=== PATIENT | male | born 1955 | race Caucasian/White ===

== ENCOUNTER 2024-06-25 14:45 | Inpatient (IN) | payer OTHER, SELFPAY ==
[2024-06-25] VITALS (38 sets, daily range): BP systolic 166–169; BP diastolic 87–89; PULSE 72–140; TEMP 36.2; O2SAT 93–99; BMI 16.7; BMI 16.8
--- NOTE | 2024-06-25 15:13 | ECG_ITS ---
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
--- NOTE | 2024-06-25 15:13 | XR_ITS ---
The [address] [address] Patient Name: YOON SUTHERLAND MRN: [id number] date: 1955 Sex: M Assigned Patient Location: ED.MAIN Current Patient Location: ER Accession/Order Number: [id number] Exam Date: 06/25/2024 15:40 Report Date: 06/25/2024 16:55 At the request of: TRACE BABCOCK Procedure: XR chest 1V PORTABLE CHEST X-RAY. CLINICAL HISTORY: Shortness of breath COMPARISON: None. TECHNIQUE: Single AP portable chest radiograph. FINDINGS: TUBES AND LINES: None. LUNGS: Lungs are clear. PLEURA: There is a moderate to large size right pneumothorax with a maximum intrapleural spread of 6.1 cm. There is mild leftward mediastinal shift. HEART AND MEDIASTINUM: Within normal limits for portable technique. OSSEOUS STRUCTURES: No acute abnormality. XR/XR chest 1V IMPRESSION: Moderate to large size right pneumothorax with mild leftward mediastinal shift. Electronically authenticated by: BREEZY LUGO Date: 06/25/2024 16:55
--- NOTE | 2024-06-25 15:15 | ED_ITS ---
Documented by User: SANDRA Pineda 06/25/24 17:23 HPI HPI - General Adult General Chief complaint: Chest Pain Stated complaint: SOB Time Seen by Provider: 06/25/24 15:09 Source: patient Mode of arrival: walk-in Limitations: no limitations History of Present Illness HPI narrative: Is a 69-year-old male who presents to the emergency department with his ex- for evaluation of shortness of breath. He states symptoms have been present for the last several weeks associated with tightness in his chest. He states he does not have any medical problems, ex- states that he smokes at least 1 pack of cigarettes per day and does not go to the doctor and is noncompliant with any medications that he has been given in the past. He has not been on any recent steroids or antibiotics. He has not had any fevers, hemoptysis or leg swelling. He is audibly wheezing with tachypnea. Patient's ex- states she brought him to the emergency department today because they went to the grocery store and the patient had to stop several times to catch his breath which made her concerned. Related Data Allergies Allergy/AdvReac Type Severity Reaction Status Date / Time acetaminophen (From Midrin) Allergy Severe Rash Verified 06/25/24 15:28 aspirin Allergy Severe vomiting Verified 06/25/24 15:28 blood calcium carbonate (From DHEA) Allergy Severe Rash Verified 06/25/24 15:28 calcium phosphate,dibasic Allergy Severe Rash Verified 06/25/24 15:28 (From DHEA) dichloralphenazone (From Allergy Severe Rash Verified 06/25/24 15:28 Midrin) isometheptene (From Midrin) Allergy Severe Rash Verified 06/25/24 15:28 prasterone (DHEA) (From DHEA) Allergy Severe Rash Verified 06/25/24 15:28 Opioid HPI Opioid Management Most Recent Opioid Data: Last Pain Scale 4 06/25/24 16:32 06/25/24 Last MAR Pain Assessment 06/25/24 16:32 Review of Systems ROS Constitutional Denies: fever or chills Ears, nose, mouth, and throat Denies: throat pain, nasal discharge or nasal congestion Cardiovascular Reports: chest pain and shortness of breath with exertion Respiratory Reports: shortness of breath, cough, wheezing and chest congestion; Denies: change in phlegm color or coughing up blood Gastrointestinal Denies: nausea or vomiting Integumentary/Breast Denies: rash Neurological Denies: numbness in extremities or weakness in extremities Hematologic/Lymphatic Denies: easy bruising or easy bleeding PFSH PFSH Social History Little interest or pleasure in doing things: not at all Feeling down, depressed, or hopeless: not at all Exam Narrative Exam Narrative: Gen.: Awake, alert, in no distress, thin male breathing rapidly Head: Normocephalic, atraumatic ENT: Moist mucous membranes Respiratory: Tachypnea, inspiratory and expiratory wheezing, worse in the left upper and lower lobes. Unable to speak in full sentences, nasal cannula placed in initial interview Cardio: Tachycardia Extremities: Moves extremities equally, no pedal edema Psych: Normal mood and affect Neuro: No focal neuro deficit Skin: Warm, dry, intact Constitutional Vital Signs, click to edit/add: Last Vital Signs Pulse 124 H 06/25/24 17:30 Resp 32 H 06/25/24 17:15 BP 166/87 H 06/25/24 15:02 Pulse Ox 96 06/25/24 17:30 O2 Del Method Nasal Cannula 06/25/24 15:26 O2 Flow Rate 2 06/25/24 15:26 Course Vital Signs Vital signs: Vital Signs Pulse Rate 140 H 06/25/24 15:02 Respiratory Rate 28 H 06/25/24 15:02 Blood Pressure 166/87 H 06/25/24 15:02 Pulse Oximetry 93 L 06/25/24 15:02 Oxygen Delivery Method Room Air 06/25/24 15:02 Pulse Rate 124 H 06/25/24 17:30 Respiratory Rate 32 H 06/25/24 17:15 Blood Pressure 166/87 H 06/25/24 15:02 Pulse Oximetry 96 06/25/24 17:30 Oxygen Delivery Method Nasal Cannula 06/25/24 15:26 Oxygen Delivery Flow Rate 2 06/25/24 15:26 Medical Decision Making [facility] Narrative Medical decision making narrative: IV was established with EKG obtained, labs were drawn including blood cultures due to the patient's tachycardia and tachypnea. Respiratory swabs are negative. Pulse oximetry improved on a nasal cannula, however the patient remained tachycardic. Chest x-ray shows the patient has a moderate right-sided pneumothorax. Chest tube was placed by attending physician, please see his procedure note for details. Case discussed with [facility]'s nursing lamp shades supervisor as well as Dr. Plata for pulmonology at this facility. We are unable to transfer the patient to another local facility, however Dr. Plata is agreeable to helping manage the patient at this facility, discussed with Dr. Messina for the hospitalist service and the patient is admitted to ICU in stable condition. Critical care time 35 minutesSHARED APC VISIT, PHYSICIAN ATTESTATION: [id number] I performed a substantive part of the MDM during the patient?s E/M visit. I personally evaluated and examined the patient. I personally made or approved the documented management plan and acknowledge its risk of complications. Medical Records Medical records reviewed: Yes I reviewed the patient's medical records Lab Data Lab results reviewed: Yes I reviewed the patient's lab results Labs: Lab Results 06/25/24 06/25/24 06/25/24 Range/Units 15:20 15:26 15:29 WBC 12.4 H (4.0-11.0) 10^3/uL RBC 5.87 (4.70-6.10) 10^6/uL Hgb 19.3 H (14.0-18.0) g/dL Hct 54.4 H (42.0-54.0) % MCV 92.7 (80.0-94.0) fL MCH 32.9 (25.9-34.0) pg MCHC 35.5 H (29.9-35.2) g/dL RDW 12.6 (11.0-15.0) % Plt Count 412 (150-450) 10^3/uL MPV 9.9 (9.5-13.5) fL Neut % (Auto) 70.0 (43.0-75.0) % Lymph % (Auto) 20.9 (20.5-60.0) % Bartholomew % (Auto) 7.4 (1.7-12.0) % Eos % (Auto) 0.7 L (0.9-7.0) % Baso % (Auto) 0.4 (0.2-2.0) % Neut # (Auto) 8.7 H (1.4-6.5) 10^3/uL Lymph # (Auto) 2.6 (1.2-3.8) 10^3/uL Bartholomew # (Auto) 0.9 H (0.3-0.8) 10^3/uL Eos # (Auto) 0.1 (0.0-0.7) 10^3/uL Baso # (Auto) 0.1 (0.0-0.1) 10^3/uL Abs Immat Gran (auto) 0.07 H (0.00-0.03) 10^3/uL Imm/Tot Granulo (auto) 0.6 H (0.0-0.5) % PT 10.9 (9.0-11.6) sec INR 1.03 VBG pH 7.258 L (7.330-7.430) VBG pCO2 33.1 L (40.0-52.0) mmHg Sodium 137 (136-145) mmol/L Potassium 3.8 (3.5-5.1) mmol/L Chloride 99 (98-107) mmol/L Carbon Dioxide 16.8 L (21.0-32.0) mmol/L Anion Gap 25.0 BUN 16.0 (7.0-18.0) mg/dL Creatinine 1.79 H (0.70-1.30) mg/dL Est GFR ( Amer) 46 L (>=60 mL/min/1.73m^2) Est GFR (Non-Af Amer) 38 L (>=60 mL/min/1.73m^2) BUN/Creatinine Ratio 8.9 Glucose 95 (74-106) mg/dL Lactate 3.6 H* (0.4-2.0) mmol/L Calcium 9.7 (8.5-10.1) mg/dL Total Bilirubin 1.1 H (0.2-1.0) mg/dL AST 23 (15-37) U/L ALT 13 L (16-63) U/L Alkaline Phosphatase 105 (46-116) U/L Troponin I High Sens 15.5 (4.0-76.1) pg/mL NT-Pro-B Natriuret Pep 246.0 (<=900.0) pg/mL Total Protein 8.6 H (6.4-8.2) g/dL Albumin 4.0 (3.4-5.0) g/dL Globulin 4.6 g/dL Albumin/Globulin Ratio 0.9 Influenza Type A Ag Negative Influenza Type B Ag Negative RSV Antigen Not detected (NOT DETECTE) SARS-CoV-2 Ag (CV2AG) Negative (NEGATIVE) Imaging Data Chest x-ray: Attestation: I have reviewed the pertinent imaging results. Radiologist's impression: ITS Impressions Chest X-Ray 06/25/24 15:13 IMPRESSION: Moderate to large size right pneumothorax with mild leftward mediastinal shift. Electronically authenticated by: BREEZY LUGO Date: 06/25/2024 16:55 ADDENDUM: 06/25/24 1730 IMPRESSION: Moderate to large size right pneumothorax with mild leftward mediastinal shift. Electronically authenticated by: BREEZY LUGO Date: 06/25/2024 17:27 ECG Data Attestation: I personally reviewed and interpreted this ECG as follows: (Sinus tachycardia at a rate of 134, ST depression noted globally with no acute ST elevation. Artifact present. EKG reviewed by attending physician) Discharge Plan Discharge Chief Complaint: Chest Pain Clinical Impression: Pneumothorax on right, Shortness of breath Patient Disposition: Admitted As Inpatient Time of Disposition Decision: 17:23 Condition: Fair Documented by User: Koby Bang 06/25/24 18:03 HPI HPI - General Adult General Chief complaint: Chest Pain Stated complaint: SOB Time Seen by Provider: 06/25/24 15:09 Related Data Allergies Allergy/AdvReac Type Severity Reaction Status Date / Time acetaminophen (From Midrin) Allergy Severe Rash Verified 06/25/24 15:28 aspirin Allergy Severe vomiting Verified 06/25/24 15:28 blood calcium carbonate (From DHEA) Allergy Severe Rash Verified 06/25/24 15:28 calcium phosphate,dibasic Allergy Severe Rash Verified 06/25/24 15:28 (From DHEA) dichloralphenazone (From Allergy Severe Rash Verified 06/25/24 15:28 Midrin) isometheptene (From Midrin) Allergy Severe Rash Verified 06/25/24 15:28 prasterone (DHEA) (From DHEA) Allergy Severe Rash Verified 06/25/24 15:28 Opioid HPI Opioid Management Most Recent Opioid Data: Last Pain Scale 4 06/25/24 16:32 06/25/24 Last MAR Pain Assessment 06/25/24 16:32 PFSH PFSH Social History Little interest or pleasure in doing things: not at all Feeling down, depressed, or hopeless: not at all Exam Constitutional Vital Signs, click to edit/add: Last Vital Signs Pulse 124 H 06/25/24 17:30 Resp 32 H 06/25/24 17:15 BP 166/87 H 06/25/24 15:02 Pulse Ox 96 06/25/24 17:30 O2 Del Method Nasal Cannula 06/25/24 15:26 O2 Flow Rate 2 06/25/24 15:26 Course Vital Signs Vital signs: Vital Signs Pulse Rate 140 H 06/25/24 15:02 Respiratory Rate 28 H 06/25/24 15:02 Blood Pressure 166/87 H 06/25/24 15:02 Pulse Oximetry 93 L 06/25/24 15:02 Oxygen Delivery Method Room Air 06/25/24 15:02 Pulse Rate 124 H 06/25/24 17:30 Respiratory Rate 32 H 06/25/24 17:15 Blood Pressure 166/87 H 06/25/24 15:02 Pulse Oximetry 96 06/25/24 17:30 Oxygen Delivery Method Nasal Cannula 06/25/24 15:26 Oxygen Delivery Flow Rate 2 06/25/24 15:26 Medical Decision Making [facility] Narrative Medical decision making narrative: IV was established with EKG obtained, labs were drawn including blood cultures due to the patient's tachycardia and tachypnea. Respiratory swabs are negative. Pulse oximetry improved on a nasal cannula, however the patient remained tachycardic. Chest x-ray shows the patient has a moderate right-sided pneumothorax. Chest tube was placed by attending physician, please see his procedure note for details. Case discussed with [facility]'s nursing lamp shades supervisor as well as Dr. Plata for pulmonology at this facility. We are unable to transfer the patient to another local facility, however Dr. Plata is agreeable to helping manage the patient at this facility, discussed with Dr. Messina for the hospitalist service and the patient is admitted to ICU in stable condition. Critical care time 35 minutesSHARED APC VISIT, PHYSICIAN ATTESTATION: [id number] I performed a substantive part of the MDM during the patient?s E/M visit. I personally evaluated and examined the patient. I personally made or approved the documented management plan and acknowledge its risk of complications. Attending physician note -I saw and examined the patient after the physician cleaner assistant let me know that the patient sustained a spontaneous right pneumothorax. Patient likely has COPD and had a bleb. No prior history of pneumothorax. I obtained verbal and written consent to perform chest tube placement in the right chest to relieve the pneumothorax. The patient received IV Zofran to prevent nausea and vomiting and IV Dilaudid for pain about 25 minutes prior to the procedure. I then applied 8 mL of 1% lidocaine to the area between the right fourth and fifth rib at the axillary line for local anesthesia. I then used a sterile 15 blade scalpel to make a small hole in the patient's skin at this level before inserting the chest tube with trochanter into the patient's right chest cavity and remove the trochanter while advancing the chest tube. I then sutured the chest tube in place and we connected the tube to suction using the included stopcock, valve and tubing. There was immediate suction sound and improvement of the patient's symptoms. There was also condensation on the tube, indicating proper placement. Portable chest x- ray was obtained to confirm this as well and revealed reinflation of the right lung. I spoke with Dr. Plata and let him know of our difficulty transferring this patient - he agreed to manage this patient's chest tube and the hospitalist would be the admitting physician. I spoke with Dr. Messina who agreed to admit this patient. The patient will go to the ICU. Of note, [facility] refused to take this patient due to lack of beds or lack of appropriate surgical/pulmonology coverage. - DO [facility]ani Lab Data Labs: Lab Results 06/25/24 06/25/24 06/25/24 Range/Units 15:20 15:26 15:29 WBC 12.4 H (4.0-11.0) 10^3/uL RBC 5.87 (4.70-6.10) 10^6/uL Hgb 19.3 H (14.0-18.0) g/dL Hct 54.4 H (42.0-54.0) % MCV 92.7 (80.0-94.0) fL MCH 32.9 (25.9-34.0) pg MCHC 35.5 H (29.9-35.2) g/dL RDW 12.6 (11.0-15.0) % Plt Count 412 (150-450) 10^3/uL MPV 9.9 (9.5-13.5) fL Neut % (Auto) 70.0 (43.0-75.0) % Lymph % (Auto) 20.9 (20.5-60.0) % Bartholomew % (Auto) 7.4 (1.7-12.0) % Eos % (Auto) 0.7 L (0.9-7.0) % Baso % (Auto) 0.4 (0.2-2.0) % Neut # (Auto) 8.7 H (1.4-6.5) 10^3/uL Lymph # (Auto) 2.6 (1.2-3.8) 10^3/uL Bartholomew # (Auto) 0.9 H (0.3-0.8) 10^3/uL Eos # (Auto) 0.1 (0.0-0.7) 10^3/uL Baso # (Auto) 0.1 (0.0-0.1) 10^3/uL Abs Immat Gran (auto) 0.07 H (0.00-0.03) 10^3/uL Imm/Tot Granulo (auto) 0.6 H (0.0-0.5) % PT 10.9 (9.0-11.6) sec INR 1.03 VBG pH 7.258 L (7.330-7.430) VBG pCO2 33.1 L (40.0-52.0) mmHg Sodium 137 (136-145) mmol/L Potassium 3.8 (3.5-5.1) mmol/L Chloride 99 (98-107) mmol/L Carbon Dioxide 16.8 L (21.0-32.0) mmol/L Anion Gap 25.0 BUN 16.0 (7.0-18.0) mg/dL Creatinine 1.79 H (0.70-1.30) mg/dL Est GFR ( Amer) 46 L (>=60 mL/min/1.73m^2) Est GFR (Non-Af Amer) 38 L (>=60 mL/min/1.73m^2) BUN/Creatinine Ratio 8.9 Glucose 95 (74-106) mg/dL Lactate 3.6 H* (0.4-2.0) mmol/L Calcium 9.7 (8.5-10.1) mg/dL Total Bilirubin 1.1 H (0.2-1.0) mg/dL AST 23 (15-37) U/L ALT 13 L (16-63) U/L Alkaline Phosphatase 105 (46-116) U/L Troponin I High Sens 15.5 (4.0-76.1) pg/mL NT-Pro-B Natriuret Pep 246.0 (<=900.0) pg/mL Total Protein 8.6 H (6.4-8.2) g/dL Albumin 4.0 (3.4-5.0) g/dL Globulin 4.6 g/dL Albumin/Globulin Ratio 0.9 Influenza Type A Ag Negative Influenza Type B Ag Negative RSV Antigen Not detected (NOT DETECTE) SARS-CoV-2 Ag (CV2AG) Negative (NEGATIVE) Imaging Data Chest x-ray: Radiologist's impression: ITS Impressions Chest X-Ray 06/25/24 15:13 IMPRESSION: Moderate to large size right pneumothorax with mild leftward mediastinal shift. Electronically authenticated by: BREEZY LUGO Date: 06/25/2024 16:55 ADDENDUM: 06/25/24 9550 IMPRESSION: Moderate to large size right pneumothorax with mild leftward mediastinal shift. Electronically authenticated by: BREEZY LUGO Date: 06/25/2024 17:27 Discharge Plan Discharge Chief Complaint: Chest Pain Clinical Impression: Pneumothorax on right, Shortness of breath Patient Disposition: Admitted As Inpatient Time of Disposition Decision: 17:23 Condition: Fair
[2024-06-25] MEDS: ALBUTEROL SULFATE 2.5 MG/3 ML VIAL NEB IH (15:25)
[2024-06-25 15:37] LABS: Basophils Absolute Auto 0.1 10^3/uL (0.0-0.1); Basophils Percent Auto 0.4 % (0.2-2.0); Eosinophils Absolute Auto 0.1 10^3/uL (0.0-0.7); Eosinophils Percent Auto 0.7 % (0.9-7.0); Hematocrit 54.4 % (42.0-54.0); Hemoglobin 19.3 g/dL (14.0-18.0); Immature Granulocytes Abs Auto 0.07 10^3/uL (0.00-0.03); Immature Granulocytes Pct Auto 0.6 % (0.0-0.5); Lymphocytes Absolute Auto 2.6 10^3/uL (1.2-3.8); Lymphocytes Percent Auto 20.9 % (20.5-60.0); Mean Corpuscular HGB Conc 35.5 g/dL (29.9-35.2); Mean Corpuscular Hemoglobin 32.9 pg (25.9-34.0); Mean Corpuscular Volume 92.7 fL (80.0-94.0); Mean Platelet Volume 9.9 fL (9.5-13.5); Monocytes Absolute Auto 0.9 10^3/uL (0.3-0.8); Monocytes Percent Auto 7.4 % (1.7-12.0); Neutrophils Absolute Auto 8.7 10^3/uL (1.4-6.5); Platelet Count 412 10^3/uL (150-450); Red Blood Count 5.87 10^6/uL (4.70-6.10); Red Cell Distribution Width 12.6 % (11.0-15.0); White Blood Count 12.4 10^3/uL (4.0-11.0)
[2024-06-25 15:39] LABS: PCO2 VBG 33.1 mmHg (40.0-52.0); pH VBG 7.258 (7.330-7.430)
[2024-06-25 15:44] LABS: Influenza Virus A Antigen Negative; Influenza Virus B Antigen Negative
[2024-06-25 15:45] LABS: Internal Control Within Normal Limits; Respiratory Syncytial Virus Not Detected (NOT DETECTE); SARS-CoV-2 Ag NEGATIVE (NEGATIVE)
[2024-06-25 15:51] LABS: INR 1.03; Prothrombin Time 10.9 sec (9.0-11.6)
[2024-06-25 16:00] LABS: Troponin I High Sensitivity 15.5 pg/mL (4.0-76.1)
[2024-06-25 16:05] LABS: Alanine Aminotransferase 13 U/L (16-63); Albumin Globulin Ratio 0.9; Alkaline Phosphatase 105 U/L (46-116); Aspartate Amino Transferase 23 U/L (15-37); BUN Creatinine Ratio 8.9; Bilirubin Total 1.1 mg/dL (0.2-1.0); Calcium 9.7 mg/dL (8.5-10.1); Carbon Dioxide 16.8 mmol/L (21.0-32.0); Chloride 99 mmol/L (98-107); Estimated GFR (African America 46 (>=60 mL/min/1.73m^2); Estimated GFR (Non-African Ame 38 (>=60 mL/min/1.73m^2); Globulin 4.6 g/dL; Glucose 95 mg/dL (74-106); Potassium 3.8 mmol/L (3.5-5.1); Sodium 137 mmol/L (136-145); Total Protein 8.6 g/dL (6.4-8.2)
[2024-06-25 16:07] LABS: Lactate/Lactic Acid 3.6 mmol/L (0.4-2.0)
[2024-06-25] MEDS: METHYLPREDNISOLONE SOD SUCC PF 125 MG/2 ML VIAL IVP (16:12)
[2024-06-25] MEDS: ONDANSETRON PF 4 MG/2 ML VIAL IV (16:24)
[2024-06-25] MEDS: HYDROMORPHONE HCL 1 MG/ML CARTRIDGE IV (16:32)
[2024-06-25] MEDS: LIDOCAINE HCL 1% 100 MG/10 ML MDV INJ (16:34)
--- NOTE | 2024-06-25 17:36 | XR_ITS ---
The [address] [address] Patient Name: YOON SUTHERLAND MRN: [id number] date: 1955 Sex: M Assigned Patient Location: ER Current Patient Location: ED.MAIN Accession/Order Number: [id number] Exam Date: 06/25/2024 17:42 Report Date: 06/25/2024 19:15 At the request of: APRYL AGUIAR Procedure: XR chest 1V Exam: Radiographs: XR chest 1V Reason for exam: chest tube placement for PTX Comparison: Plain films from earlier today XR/XR chest 1V IMPRESSION: Right pneumothorax has nearly resolved. Small amount of atelectasis and/or scarring in the right lower lung. Small amount of opacities in the right apex. Smallbore right chest tube. Hyperinflation both lungs. Possible emphysema. Remainder of the chest is unremarkable. Electronically authenticated by: NIKOLE LEAL Date: 06/25/2024 19:15
[2024-06-25] MEDS: LACTATED RINGER'S SOLUTION 1,000 ML 125 ML IV (19:53)
[2024-06-25] MEDS: MORPHINE SULFATE 2 MG/ML SYRINGE IV (19:53)
[2024-06-26] VITALS (73 sets, daily range): BP systolic 145–163; BP diastolic 69–104; PULSE 52–105; TEMP 36.4–37; O2SAT 95–100
[2024-06-26] MEDS: MORPHINE SULFATE 2 MG/ML SYRINGE IV ×4 (00:24→21:22)
[2024-06-26] MEDS: HEPARIN SODIUM (PORCINE) 5,000 UNIT/ML VIAL 5000 UNIT SUBQ ×4 (00:24→21:22)
--- NOTE | 2024-06-26 04:00 | XR_ITS ---
The [address] [address] Patient Name: YOON SUTHERLAND MRN: [id number] date: 1955 Sex: M Assigned Patient Location: ICU Current Patient Location: ICU Accession/Order Number: [id number] Exam Date: 06/26/2024 04:05 Report Date: 06/26/2024 06:02 At the request of: ANDREI MCLAUGHLIN Procedure: XR chest 1V EXAM: XR chest 1V HISTORY: Pneumothorax COMPARISON: Chest x-ray, 06/25/2024. TECHNIQUE: AP upright portable chest x-ray. FINDINGS: Right chest tube tip projects over the medial margin of the left upper lobe in the left lateral superior mediastinum, presumably in the anterior recess of the medial right upper lobe. No definite residual right pneumothorax is seen. There is stable right apical pulmonary parenchymal scarring with additional mild fibrotic scarring or atelectasis in the right lung base. Left lung is clear. Cardiac size, mediastinal contour and pulmonary vascularity are within normal limits. Calcified granulomatous mediastinal and right hilar nodes are present. XR/XR chest 1V IMPRESSION: 1. Right chest tube tip projecting over the medial margin of the left upper lobe in the left lateral superior mediastinum, presumably in the anterior recess of the medial right upper lobe. No definite residual right pneumothorax is seen. 2. Stable right apical pulmonary parenchymal scarring with additional mild fibrotic scarring or atelectasis in the right lung base. Electronically authenticated by: CHE JAMES Date: 06/26/2024 06:02
[2024-06-26 06:00] LABS: Basophils Percent Auto 0.1 % (0.2-2.0); Hematocrit 45.3 % (42.0-54.0); Hemoglobin 16.2 g/dL (14.0-18.0); Immature Granulocytes Abs Auto 0.05 10^3/uL (0.00-0.03); Immature Granulocytes Pct Auto 0.5 % (0.0-0.5); Lymphocytes Absolute Auto 0.8 10^3/uL (1.2-3.8); Lymphocytes Percent Auto 7.6 % (20.5-60.0); Mean Corpuscular HGB Conc 35.8 g/dL (29.9-35.2); Mean Corpuscular Hemoglobin 32.5 pg (25.9-34.0); Mean Corpuscular Volume 90.8 fL (80.0-94.0); Mean Platelet Volume 9.8 fL (9.5-13.5); Monocytes Absolute Auto 0.3 10^3/uL (0.3-0.8); Neutrophils Absolute Auto 9.1 10^3/uL (1.4-6.5); Neutrophils Percent Auto 88.8 % (43.0-75.0); Platelet Count 328 10^3/uL (150-450); Red Blood Count 4.99 10^6/uL (4.70-6.10); Red Cell Distribution Width 12.3 % (11.0-15.0); White Blood Count 10.3 10^3/uL (4.0-11.0)
[2024-06-26] MEDS: LACTATED RINGER'S SOLUTION 1,000 ML 125 ML IV (06:02)
[2024-06-26 06:27] LABS: Alanine Aminotransferase 12 U/L (16-63); Albumin Globulin Ratio 0.9; Albumin Level 3.2 g/dL (3.4-5.0); Alkaline Phosphatase 76 U/L (46-116); Anion Gap 14.3; Aspartate Amino Transferase 15 U/L (15-37); BUN Creatinine Ratio 13.5; Bilirubin Total 0.4 mg/dL (0.2-1.0); Calcium 9.1 mg/dL (8.5-10.1); Carbon Dioxide 23.7 mmol/L (21.0-32.0); Chloride 101 mmol/L (98-107); Estimated GFR (African America 51 (>=60 mL/min/1.73m^2); Estimated GFR (Non-African Ame 42 (>=60 mL/min/1.73m^2); Globulin 3.5 g/dL; Glucose 188 mg/dL (74-106); Sodium 135 mmol/L (136-145); Total Protein 6.7 g/dL (6.4-8.2)
[2024-06-26] MEDS: OXYCODONE HCL 5 MG TABLET PO ×2 (09:28→17:28)
--- NOTE | 2024-06-26 11:41 | P.HP_ITS ---
HPI H&P: HPI History of Present Illness Chief complaint: RT PNEUMOTHORAX Narrative: 69-year-old male has not followed up with a physician for over 5 years now presented to ER last evening with sudden onset right-sided chest pain and shortness of breath that was so severe that he could not catch his breath. Workup in ER revealed moderate size right pneumothorax with mild mediastinal shift. In ER, he had chest tube placement and afterwards he was admitted to ICU for management of pneumothorax. Patient feels considerably well after chest tube placement but is still feeling slightly dyspneic and reports right-sided chest pain because of chest tube. He reports that for past 1 to 2 months he has been experiencing shortness of breath but last evening was entirely different where he could not hold of not seeing a physician for his dyspnea. Patient currently smokes 1 pack a day. He has no prior history of pneumothorax. Opioid HPI Opioid Management Most Recent Pain and Opioid Data: Last Pain Scale 5 06/26/24 10:30 06/26/24 Last Pain Assessment 06/26/24 09:00 Last ED Pain Assessment 06/25/24 20:01 Last MAR Pain Assessment 06/26/24 10:30 Last ORT Total Score 5 06/25/24 23:35 06/25/24 Last ORT Risk Category Moderate Risk 06/25/24 23:35 06/25/24 Review of Systems ROS Status of ROS 10 or more systems reviewed and unremark able except as noted in history and below [facility] Medical History (Updated 06/26/24 @ 11:45 by Shaikh Mayuri MD) CKD stage 3b, GFR 30-44 ml/min ?N18.32 - Chronic kidney disease, stage 3b (ICD-10) Femur fracture ?S72.90XA - Unspecified fracture of unspecified femur, initial encounter for closed fracture (ICD-10) Hernia ?K46.9 - Unspecified abdominal hernia without obstruction or gangrene (ICD- 10) Hypertension ?I10 - Essential (primary) hypertension (ICD-10) Pneumothorax ?J93.9 - Pneumothorax, unspecified (ICD-10) COPD (chronic obstructive pulmonary disease) ?J44.9 - Chronic obstructive pulmonary disease, unspecified (ICD-10) Surgical History (Updated 06/26/24 @ 11:42 by Shaikh Mayuri MD) H/O inguinal hernia repair ?Z98.890 - Other specified postprocedural states (ICD-10) ?Z87.19 - Personal history of other diseases of the digestive system (ICD-10) H/O total knee replacement ?Z96.659 - Presence of unspecified artificial knee joint (ICD-10) H/O removal of testicle ?Z90.79 - Acquired absence of other genital organ(s) (ICD-10) Social History (Updated 06/26/24 @ 11:42 by Shaikh Mayuri MD) Within the past year, how often did you have a drink containing alcohol: 4 or more times a week Within the past year, how many standard drinks containing alcohol did you have on a typical day: 3 or 4 Within the past year, how often did you have six or more drinks on one occasion: monthly Total score: 4 Score interpretation: A score of 4 or more indicates drinking is likely to affect patient's safety. Smoking status: Current every day smoker Non-prescribed substance use: former substance user Highest level of school completed/degree received: high school graduate Little interest or pleasure in doing things: not at all Feeling down, depressed, or hopeless: not at all Meds Home Medications and Allergies Allergies Allergy/AdvReac Type Severity Reaction Status Date / Time acetaminophen (From Midrin) Allergy Severe Rash Verified 06/25/24 15:28 aspirin Allergy Severe vomiting Verified 06/25/24 15:28 blood calcium carbonate (From DHEA) Allergy Severe Rash Verified 06/25/24 15:28 calcium phosphate,dibasic Allergy Severe Rash Verified 06/25/24 15:28 (From DHEA) dichloralphenazone (From Allergy Severe Rash Verified 06/25/24 15:28 Midrin) isometheptene (From Midrin) Allergy Severe Rash Verified 06/25/24 15:28 prasterone (DHEA) (From DHEA) Allergy Severe Rash Verified 06/25/24 15:28 Exam Constitutional Vital Signs, click to edit/add: Last Vital Signs Temp 97.6 F 06/26/24 08:00 Pulse 60 06/26/24 08:00 Resp 20 06/26/24 08:00 BP 157/96 H 06/26/24 08:00 Pulse Ox 100 06/26/24 08:00 O2 Del Method Nasal Cannula 06/26/24 08:00 O2 Flow Rate 6 06/26/24 08:00 Documenting provider has reviewed patient's vital signs: yes Common normals: no apparent distress and oriented x3 General appearance: cooperative Respiratory Common normals: normal respiratory effort Effort & inspection: able to speak in complete sentences Auscultation: wheezes Other: Chest tube in place. Cardio Common normals: regular rate, S1 normal heart sound and S2 normal heart sound Rate: regular rate Heart sounds: S1 normal and S2 normal GI Common normals: Normal to inspection, nondistended, normoactive bowel sounds present, soft to palpation, non-tender and no hepatosplenomegaly Palpation: soft and no hepatosplenomegaly Extremity Common normals: no clubbing, cyanosis or edema Neuro Common normals: oriented x3, moves all extremities and no focal motor deficits Psych Common normals: mental status grossly normal, denies hallucinations, denies homicidal ideation and denies suicidal ideation Results Labs Labs: Short CBC 06/25/24 06/26/24 Range/Units 15:20 05:33 WBC 12.4 H 10.3 (4.0-11.0) 10^3/uL Hgb 19.3 H 16.2 (14.0-18.0) g/dL Hct 54.4 H 45.3 (42.0-54.0) % Plt Count 412 328 (150-450) 10^3/uL BMP 06/25/24 06/26/24 15:20 05:33 Sodium 137 135 L Potassium 3.8 4.0 Chloride 99 101 Carbon Dioxide 16.8 L 23.7 BUN 16.0 22.0 H Creatinine 1.79 H 1.63 H Glucose 95 188 H Calcium 9.7 9.1 Liver Function 06/25/24 06/26/24 Range/Units 15:20 05:33 Total Bilirubin 1.1 H 0.4 (0.2-1.0) mg/dL AST 23 15 (15-37) U/L ALT 13 L 12 L (16-63) U/L Alkaline Phosphatase 105 76 (46-116) U/L Albumin 4.0 3.2 L (3.4-5.0) g/dL ABG ABG results: 06/25/24 15:26 VBG pH 7.258 L VBG pCO2 33.1 L Assessment and Plan Assessment and Plan (1) Pneumothorax on right: Assessment and Plan: Chest tube in place. XR shows resolution of Pneumothroax. Pulm on board. Chest tube management as per Pulm (2) Shortness of breath: Assessment and Plan: Improved after Chest tube placement (3) COPD (chronic obstructive pulmonary disease): Assessment and Plan: Likely has underlying COPD/emphysema. Will need PFTs as outpatient. Duonebs while inpatient. Qualifiers: COPD type: unspecified COPD Qualified Code(s): J44.9 - Chronic obstructive pulmonary disease, unspecified (4) CKD stage 3b, GFR 30-44 ml/min: Assessment and Plan: Likely chronic kidney disease. Will need outpatient f.u
--- NOTE | 2024-06-26 12:25 | PM.PLCN ---
History of Present Illness History of Present Illness Consult date: 06/27/24 Requesting physician: Koby Bang Reason for consult: pneumothorax Chief complaint: RT PNEUMOTHORAX Narrative: 69yo male presented to [facility] ER with abrupt onset right-sided chest pain and worsening dyspnea. Chest x-ray in the ER showed a large right-sided pneumothorax with some mild mediastinal shift. A small bore chest tube was placed in the mid axillary line which has resolved the pneumothorax. He has remained on -20cm suction overnight. Patient states other than pain associated with the incision, he does not have the same quality of pain that brought him to the ER. He states he is able to take deeper breaths and decrease coughing. He was placed on waterseal and no air leak was noted. Patient has no known history of COPD, though he is a long-term smoker, currently at 1 pack a day. He has never had a pneumothorax in the past. Review of Systems ROS Status of ROS 10 or more systems reviewed and unremarkable except as noted in history and below Cardiovascular Reports: chest pain (Now associated with chest tube placement) Respiratory Reports: shortness of breath (Decreased) and cough (Decreased) [facility] Medical History (Updated 06/26/24 @ 12:33 by Preston Plata DO) CKD stage 3b, GFR 30-44 ml/min ?N18.32 - Chronic kidney disease, stage 3b (ICD-10) Femur fracture ?S72.90XA - Unspecified fracture of unspecified femur, initial encounter for closed fracture (ICD-10) Hernia ?K46.9 - Unspecified abdominal hernia without obstruction or gangrene (ICD-10) Hypertension ?I10 - Essential (primary) hypertension (ICD-10) Pneumothorax ?J93.9 - Pneumothorax, unspecified (ICD-10) COPD (chronic obstructive pulmonary disease) ?J44.9 - Chronic obstructive pulmonary disease, unspecified (ICD-10) Surgical History (Updated 06/26/24 @ 11:42 by Shaikh Mayuri MD) H/O inguinal hernia repair ?Z98.890 - Other specified postprocedural states (ICD-10) ?Z87.19 - Personal history of other diseases of the digestive system (ICD-10) H/O total knee replacement ?Z96.659 - Presence of unspecified artificial knee joint (ICD-10) H/O removal of testicle ?Z90.79 - Acquired absence of other genital organ(s) (ICD-10) Social History (Updated 06/26/24 @ 11:42 by Shaikh Mayuri MD) Within the past year, how often did you have a drink containing alcohol: 4 or more times a week Within the past year, how many standard drinks containing alcohol did you have on a typical day: 3 or 4 Within the past year, how often did you have six or more drinks on one occasion: monthly Total score: 4 Score interpretation: A score of 4 or more indicates drinking is likely to affect patient's safety. Smoking status: Current every day smoker Non-prescribed substance use: former substance user Highest level of school completed/degree received: high school graduate Little interest or pleasure in doing things: not at all Feeling down, depressed, or hopeless: not at all Meds Home Medications and Allergies Allergies Allergy/AdvReac Type Severity Reaction Status Date / Time acetaminophen (From Midrin) Allergy Severe Rash Verified 06/25/24 15:28 aspirin Allergy Severe vomiting Verified 06/25/24 15:28 blood calcium carbonate (From DHEA) Allergy Severe Rash Verified 06/25/24 15:28 calcium phosphate,dibasic Allergy Severe Rash Verified 06/25/24 15:28 (From DHEA) dichloralphenazone (From Allergy Severe Rash Verified 06/25/24 15:28 Midrin) isometheptene (From Midrin) Allergy Severe Rash Verified 06/25/24 15:28 prasterone (DHEA) (From DHEA) Allergy Severe Rash Verified 06/25/24 15:28 Exam Constitutional Vital Signs, click to edit/add: Last Vital Signs Temp 97.6 F 06/26/24 08:00 Pulse 77 06/26/24 11:54 Resp 15 06/26/24 11:54 BP 155/71 H 06/26/24 11:54 Pulse Ox 100 06/26/24 11:54 O2 Del Method Nasal Cannula 06/26/24 08:00 O2 Flow Rate 6 06/26/24 08:00 Documenting provider has reviewed patient's vital signs: yes Nutritional appearance: thin and underweight HENMT Other: Wearing nasal cannula. Mallampati III. Chest Other: Right-sided thoracostomy tube in the mid axillary line. Tender to touch, but no subcutaneous emphysema palpated. Scant drainage of clear cristobal to slightly blood-tinged pleural fluid. No air leak in atrium on waterseal. Respiratory Other: Left lung clear to auscultation. Right lung is diminished in right base with some coarse breath sounds. No expiratory wheezes. No dullness to percussion, altered tactile fremitus, or egophony appreciated. Cardio Rate: regular rate Rhythm: regular rhythm Extremity Common normals: no clubbing, cyanosis or edema Neuro Motor exam: no tremor noted and no fasciculations Psych Common normals: mental status grossly normal Attitude: calm and engaged Activity/motor behavior: appropriate eye contact Speech: normal speech Results Laboratory Findings ABG, PT/INR, D-dimer: PT/INR, D-dimer PT 10.9 sec (9.0-11.6) 06/25/24 15:20 INR 1.03 06/25/24 15:20 Abnormal lab findings: Abnormal Labs 06/25/24 06/25/24 06/26/24 15:20 15:26 05:33 WBC 12.4 H Hgb 19.3 H Hct 54.4 H MCHC 35.5 H 35.8 H Neut % (Auto) 88.8 H Lymph % (Auto) 7.6 L Eos % (Auto) 0.7 L 0.0 L Baso % (Auto) 0.1 L Neut # (Auto) 8.7 H 9.1 H Lymph # (Auto) 0.8 L [place] # (Auto) 0.9 H Abs Immat Gran (auto) 0.07 H 0.05 H Imm/Tot Granulo (auto) 0.6 H VBG pH 7.258 L VBG pCO2 33.1 L Sodium 135 L Carbon Dioxide 16.8 L BUN 22.0 H Creatinine 1.79 H 1.63 H Est GFR ( Amer) 46 L 51 L Est GFR (Non-Af Amer) 38 L 42 L Glucose 188 H Lactate 3.6 H* Total Bilirubin 1.1 H ALT 13 L 12 L Total Protein 8.6 H Albumin 3.2 L Diagnostic Findings Chest x-ray: report reviewed and image reviewed Assessment and Plan Assessment and Plan (1) Secondary spontaneous pneumothorax: Assessment and Plan: 1. Spontaneous right-sided pneumothorax. With presumptive underlying COPD, and as this is the first incident at age 69 years, this would be consistent with a secondary spontaneous pneumothorax. It was large on the right with mild mediastinal shift necessitating placement of a chest tube. This seems to be progressing very well with resolution of the pneumothorax on chest x-ray this morning and no evidence of air leak on waterseal today. Plan is to remain on waterseal for the remainder of the day and recheck a chest x-ray tomorrow. Continue O2 at 6L/min for nitrogen washout. Pain control. If pneumothorax remains resolved tomorrow, will remove chest tube and recheck a chest x-ray several hours later, and if no pneumothorax is present, that he should be acceptable for discharge home. He is counseled that he can never scuba dive, he will need to avoid any air transportation within the next 4 to 6 weeks. He was counseled to stop smoking as continued smoking increases the risk for current pneumothoraces. Alpha 1 antitrypsin genotype and level were ordered. Will need follow-up outpatient with me. 2. COPD. Presumptive diagnosis based on history. Likely cause for pneumothorax. Smoking cessation. Will evaluate him outpatient regarding need for PFT, etc. 3. Tobacco abuse. Discussed smoking cessation. He is counseled never to restart due to pneumothorax. He can be evaluated outpatient to begin LDCT screening for lung cancer. 4. Underweight. BMI is 16.8. Patient may have a degree of underlying pulmonary cachexia. Healthy weight gain/caloric intake is recommended.
[2024-06-27] VITALS (27 sets, daily range): BP systolic 137–158; BP diastolic 70–76; PULSE 58–85; TEMP 36.4–36.9; O2SAT 98–100
[2024-06-27] MEDS: OXYCODONE HCL 5 MG TABLET PO ×2 (00:06→12:05)
[2024-06-27] MEDS: MORPHINE SULFATE 2 MG/ML SYRINGE IV (04:42)
--- NOTE | 2024-06-27 05:00 | XR_ITS ---
The [address] [address] Patient Name: YOON SUTHERLAND MRN: [id number] date: 1955 Sex: M Assigned Patient Location: ICU Current Patient Location: ICU Accession/Order Number: [id number] Exam Date: 06/27/2024 04:50 Report Date: 06/27/2024 05:52 At the request of: ANDREI MCLAUGHLIN Procedure: XR chest 1V EXAMINATION: XR chest 1V HISTORY: Right pneumothorax COMPARISON: XR chest 06/26/2024 FINDINGS: LUNGS: Stable small caliber right chest tube. No residual pneumothorax. Stable trace amount of discoid atelectasis or scarring. Small dense nodule within lateral right lung base favoring a granuloma. VASCULATURE: No increased pulmonary vasculature. PLEURA: No pneumothorax, effusion, or pleural thickening. CARDIAC: No cardiomegaly or cardiac silhouette abnormality. MEDIASTINUM: No visible mass or adenopathy. BONES: No fracture or visible bone lesion. OTHER: Negative. XR/XR chest 1V IMPRESSION: 1. No residual right pneumothorax. Stable right chest tube. Electronically authenticated by: WEST SEPULVEDA Date: 06/27/2024 05:52
[2024-06-27 05:25] LABS: Basophils Percent Auto 0.3 % (0.2-2.0); Eosinophils Absolute Auto 0.1 10^3/uL (0.0-0.7); Eosinophils Percent Auto 0.4 % (0.9-7.0); Hemoglobin 17.6 g/dL (14.0-18.0); Immature Granulocytes Abs Auto 0.06 10^3/uL (0.00-0.03); Immature Granulocytes Pct Auto 0.4 % (0.0-0.5); Lymphocytes Absolute Auto 2.4 10^3/uL (1.2-3.8); Lymphocytes Percent Auto 16.7 % (20.5-60.0); Mean Corpuscular HGB Conc 35.9 g/dL (29.9-35.2); Mean Corpuscular Hemoglobin 32.7 pg (25.9-34.0); Mean Corpuscular Volume 91.1 fL (80.0-94.0); Mean Platelet Volume 10.2 fL (9.5-13.5); Monocytes Absolute Auto 1.1 10^3/uL (0.3-0.8); Monocytes Percent Auto 7.2 % (1.7-12.0); Platelet Count 350 10^3/uL (150-450); Red Blood Count 5.38 10^6/uL (4.70-6.10); Red Cell Distribution Width 12.6 % (11.0-15.0); White Blood Count 14.6 10^3/uL (4.0-11.0)
[2024-06-27 05:45] LABS: Alanine Aminotransferase 16 U/L (16-63); Albumin Globulin Ratio 0.9; Albumin Level 3.6 g/dL (3.4-5.0); Alkaline Phosphatase 77 U/L (46-116); Anion Gap 11.1; Aspartate Amino Transferase 28 U/L (15-37); BUN Creatinine Ratio 10.7; Bilirubin Total 0.6 mg/dL (0.2-1.0); Calcium 9.5 mg/dL (8.5-10.1); Carbon Dioxide 30.1 mmol/L (21.0-32.0); Chloride 102 mmol/L (98-107); Estimated GFR (African America >60 (>=60 mL/min/1.73m^2); Estimated GFR (Non-African Ame 59 (>=60 mL/min/1.73m^2); Globulin 3.8 g/dL; Glucose 84 mg/dL (74-106); Potassium 3.2 mmol/L (3.5-5.1); Sodium 140 mmol/L (136-145); Total Protein 7.4 g/dL (6.4-8.2)
[2024-06-27] MEDS: HEPARIN SODIUM (PORCINE) 5,000 UNIT/ML VIAL 5000 UNIT SUBQ (06:27)
--- NOTE | 2024-06-27 06:53 | P.PLPN_ITS ---
Progress Note: A&P Assessment and Plan (1) Secondary spontaneous pneumothorax: Assessment and Plan: 1. Spontaneous right-sided pneumothorax. ?Remains resolved while on water seal based on CXR this AM.? Removed chest tube this AM - undressed the area, cut the single suture, and removed tube during exhalation. Area dressed with Vaseline gauze with overlying 4x4 and tape.? Will repeat CXR ~ noon.? If no pneumothorax, patient should be acceptable for discharge from a pulmonary perspective.? He may F/U with me outpatient in ~1 month - appointment scheduled for 07/26/2023 @ 13:00. Return to ER if experiencing similar pain to chief complaint or abrupt dyspnea. 2. COPD. Outpatient evaluation. 3. Tobacco abuse. Smoking cessation paramount 4. Underweight. Healthy weight gain/caloric intake is recommended. Subjective Subjective Interval history: Patient placed on water seal yesterday. No issues reported overnight. Pain is controlled with current medicine. Denies worsening dyspnea or coughing. Reviewed CXR imaging and report - no residual pneumothorax while on water seal this AM. Exam Constitutional Vital Signs, click to edit/add: Last Vital Signs Temp 98.5 F 06/27/24 04:46 Pulse 59 L 06/27/24 06:26 Resp 18 06/27/24 04:47 BP 158/70 H 06/27/24 04:39 Pulse Ox 99 06/27/24 05:16 O2 Del Method Nasal Cannula 06/27/24 05:16 O2 Flow Rate 6 06/27/24 05:16 Documenting provider has reviewed patient's vital signs: yes Nutritional appearance: thin and underweight HENMD Other: Wearing nasal cannula. Chest Other: Right-sided thoracostomy tube in the mid axillary line. Remains tender to touch. No erythema, drainage, subQ air. Held in place by a single suture. Respiratory Other: Left lung clear to auscultation. Right lung is diminished in right base, re solved crackles. No wheezes. Cardio Rate: bradycardic Rhythm: regular rhythm Extremity Common normals: no clubbing, cyanosis or edema Neuro Motor exam: no tremor noted and no fasciculations Psych Common normals: mental status grossly normal Attitude: calm and engaged Activity/motor behavior: appropriate eye contact Speech: normal speech
--- NOTE | 2024-06-27 08:24 | CM.NOTE ---
Important Message From Medicare discussed with pt, pt verbalizes understanding and signs paper. Original given to pt and copy placed on pt's chart.
[2024-06-27] MEDS: POTASSIUM CHLORIDE 10 MEQ ER TABLET 40 MEQ PO (08:45)
--- NOTE | 2024-06-27 09:59 | CM.NOTE ---
Rounds made with Dr. Messina, pt will have repeat chest x-ray at noon and possible discharge to home. Dr. Messina discussed with pt importance of quitting smoking. Pt has no discharge needs identified. PT ambulating pt at this time.
--- NOTE | 2024-06-27 12:00 | XR_ITS ---
The [address] [address] Patient Name: YOON SUTHERLAND MRN: [id number] date: 1955 Sex: M Assigned Patient Location: ICU Current Patient Location: ICU Accession/Order Number: [id number] Exam Date: 06/27/2024 12:00 Report Date: 06/27/2024 13:32 At the request of: ANDREI MCLAUGHLIN Procedure: XR chest 1V EXAM: XR chest 1V HISTORY: Right pneumothorax - chest tube removed COMPARISON: 06/27/2024 at 4:50 AM, 06/25/2024 TECHNIQUE: AP portable] FINDINGS: LUNGS: Interval removal of right chest tube. No pneumothorax. Patchy infiltrate right apex, stable. VASCULATURE: No increased pulmonary vasculature. PLEURA: No pneumothorax, effusion, or pleural thickening. CARDIAC: No cardiomegaly or cardiac silhouette abnormality. MEDIASTINUM: Calcifications consistent with old granulomatous disease. BONES: No fracture or visible bone lesion. OTHER: Negative. XR/XR chest 1V IMPRESSION: No pneumothorax Electronically authenticated by: KAYLEIGH WYLIE Date: 06/27/2024 13:32
--- NOTE | 2024-06-27 13:54 | P.DS_ITS ---
DS: Providers Provider Date of admission: 06/25/24 23:11 Primary care physician: Non-Staff PhysicianMD Admitting clinician: Shaikh Mayuri Attending physician on admission: Shaikh Mayuri Consults: 06/25/24 17:12 Consult to Pulmonology Routine Consulting Provider: Prseton Plata Reason for consultation: right pneumothorax Has provider been notified: Yes 06/25/24 18:13 Consult to Pulmonology Routine Consulting Provider: Preston Plata Reason for consultation: Pneumothorax Occupational Therapy Eval and Treat Routine Reason for consultation: Ambulatory dysfunction/weakness Physical Therapy Eval and Treat Routine Reason for consultation: Ambulatory dysfunction/weakness Attending physician on discharge: Shaikh Mayuri Discharging clinician: Shaikh Mayuri Anticipated date of discharge: 06/27/24 DS: Diagnosis Discharge Diagnosis (1) Secondary spontaneous pneumothorax: (2) Shortness of breath: (3) COPD (chronic obstructive pulmonary disease): Qualifiers: COPD type: unspecified COPD Qualified Code(s): J44.9 - Chronic obstructive pulmonary disease, unspecified DS: Summary Hospital Course Hospital Course: 69-year-old male presented to ER with sudden onset right-sided chest pain and shortness of breath that was so severe that he could not catch his breath. Workup in ER revealed moderate size right pneumothorax with mild mediastinal shift. In ER, he had chest tube placement and afterwards he was admitted to ICU for management of pneumothorax. Patient was seen by Pulmonology. His CT was removed today after his CXR showed resolution of Pneumothorax. Repeat CXR at noon after removing Chest tube shows no evidence of Pneumothorax. Patient is stable for discharge. He will need f/u with PCP and Pulm. Appointments made for him already. Counseled on smoking cessation Status at Discharge Functional status at discharge: independent ambulation Overall status at discharge: patient is back to baseline Time Spent with Patient Time attestation: Total time spent providing and/or coordinating discharge services: Time spent: greater than 30 minutes Exam Constitutional Vital Signs, click to edit/add: Last Vital Signs Temp 97.6 F 06/27/24 12:00 Pulse 74 06/27/24 12:00 Resp 14 06/27/24 12:00 BP 138/73 06/27/24 12:00 Pulse Ox 99 06/27/24 12:00 O2 Del Method Nasal Cannula 06/27/24 12:00 O2 Flow Rate 6 06/27/24 12:00 Documenting provider has reviewed patient's vital signs: yes Common normals: no apparent distress and oriented x3 General appearance: cooperative Respiratory Common normals: normal respiratory effort Effort & inspection: able to speak in complete sentences Auscultation: wheezes Cardio Common normals: regular rate, S1 normal heart sound and S2 normal heart sound Rate: regular rate Heart sounds: S1 normal and S2 normal Extremity Common normals: no clubbing, cyanosis or edema Neuro Common normals: oriented x3, moves all extremities and no focal motor deficits Psych Common normals: mental status grossly normal, denies hallucinations, denies homicidal ideation and denies suicidal ideation DS: Data Data Completed and Pending Labs on day of discharge: Labs from last 24 hours 06/27/24 04:47 WBC 14.6 H RBC 5.38 Hgb 17.6 Hct 49.0 MCV 91.1 MCH 32.7 MCHC 35.9 H RDW 12.6 Plt Count 350 MPV 10.2 Neut % (Auto) 75.0 Lymph % (Auto) 16.7 L [place] % (Auto) 7.2 Eos % (Auto) 0.4 L Baso % (Auto) 0.3 Neut # (Auto) 11.0 H Lymph # (Auto) 2.4 [place] # (Auto) 1.1 H Eos # (Auto) 0.1 Baso # (Auto) 0.0 Abs Immat Gran (auto) 0.06 H Imm/Tot Granulo (auto) 0.4 Sodium 140 Potassium 3.2 L Chloride 102 Carbon Dioxide 30.1 Anion Gap 11.1 BUN 13.0 Creatinine 1.22 Est GFR ( Amer) >60 Est GFR (Non-Af Amer) 59 L BUN/Creatinine Ratio 10.7 Glucose 84 Calcium 9.5 Total Bilirubin 0.6 AST 28 ALT 16 Alkaline Phosphatase 77 Total Protein 7.4 Albumin 3.6 Globulin 3.8 Albumin/Globulin Ratio 0.9 Discharge Plan Discharge Disposition: Home, Self-Care Condition: Fair Activity: increase activity as tolerated Diet: advance to your usual diet Print Language: Kazakh Forms: Portal Instructions Follow Up Appointments: Follow up appointment with steam pressure chamber operator Dr. Plata on 07/26/2024 at 1:00pm phone number [phone] [place] [address]. Follow up/New patient appointment with Dr. Ivan Segal 06/30/2023 at 1:15pm phone number [phone] address is [facility] [place] [address]
--- NOTE | 2024-06-29 15:51 | CM.DCFOLLOWU ---
1st attempt 06/29/24, no answer
--- NOTE | 2024-06-30 15:39 | CM.DCFOLLOWU ---
2nd attempt 06/30/24, no answer
--- NOTE | 2024-07-01 14:55 | CM.DCFOLLOWU ---
3rd attempt 07/01/24, no answer
== END 2024-06-27 14:37 | disposition home or self-care (01) | DRG 191 ==
LOC: ER 18:03 → ICU 23:17
PROVIDERS: Physician Assistant; Admitting Provider Internal Medicine; Emergency Provider Emergency Medicine; Visit Provider Internal Medicine
DX: J43.9 Emphysema, unspecified (principal); J93.12 Secondary spontaneous pneumothorax; Z68.1 Body mass index [BMI] 19.9 or less, adult; R64 Cachexia; I12.9 Hypertensive chronic kidney disease with stage 1 through stage 4 chronic kidney disease, or unspecified chronic kidney disease; N18.32 Chronic kidney disease, stage 3b; F17.210 Nicotine dependence, cigarettes, uncomplicated; R63.6 Underweight; Z88.6 Allergy status to analgesic agent; Z88.8 Allergy status to other drugs, medicaments and biological substances
CPT/HCPCS: 36415; 71045; 80053; 82800; 83605; 83880; 84484; 85025; 85610; 87040; 87420; 87804; 87811; 93005; 94640; 94761; 96374; 96375; 97161; 97165; 99285; J1171; J1644; J2270; J2405; J2919

== ENCOUNTER 2024-11-06 15:03 | Emergency (ER) | payer OTHER, SELFPAY ==
[2024-11-06 15:09] VITALS: BP 159/91; PULSE 79; TEMP 36.8; O2SAT 97; BMI 16.4
[2024-11-06] MEDS: HYDROCODONE/ACET 5-325 MG TABLET 1 TAB PO (15:25)
[2024-11-06 15:37] LABS: Basophils Percent Auto 0.2 % (0.2-2.0); Eosinophils Percent Auto 0.2 % (0.9-7.0); Hematocrit 48.1 % (42.0-54.0); Hemoglobin 17.4 g/dL (14.0-18.0); Immature Granulocytes Abs Auto 0.05 10^3/uL (0.00-0.03); Immature Granulocytes Pct Auto 0.3 % (0.0-0.5); Lymphocytes Percent Auto 6.6 % (20.5-60.0); Mean Corpuscular HGB Conc 36.2 g/dL (29.9-35.2); Mean Corpuscular Hemoglobin 35.7 pg (25.9-34.0); Mean Corpuscular Volume 98.6 fL (80.0-94.0); Mean Platelet Volume 9.5 fL (9.5-13.5); Monocytes Absolute Auto 1.2 10^3/uL (0.3-0.8); Monocytes Percent Auto 7.8 % (1.7-12.0); Neutrophils Absolute Auto 12.9 10^3/uL (1.4-6.5); Neutrophils Percent Auto 84.9 % (43.0-75.0); Platelet Count 343 10^3/uL (150-450); Red Blood Count 4.88 10^6/uL (4.70-6.10); White Blood Count 15.2 10^3/uL (4.0-11.0)
--- NOTE | 2024-11-06 15:47 | ED_ITS ---
HPI HPI - General Adult General Chief complaint: Extremity Problem, Nontraumatic Stated complaint: SWOLLEN L ARM, L SHOULDER PAIN Time Seen by Provider: 11/06/24 15:10 Source: patient Mode of arrival: walk-in History of Present Illness HPI narrative: The patient is a 69-year-old male who presents to the emergency department today for evaluation concerns for pain to his left shoulder and wrist. He endorses 2 days ago he began experiencing pain to the posterior aspect of his left shoulder and reports limitation in movement due to pain. He initially mentions this morning he woke up with pain and swelling to his left wrist. He denies any injuries/trauma to his left upper extremity. No paresthesias, weakness, loss of movement to the affected extremity otherwise. He states he has a history of arthritis, no history of gout. Historically no fevers. No chest pain or shortness of breath. He states he did not take any analgesic medication prior to evaluation in the ER. Related Data Previous Rx's ?Medication ?Instructions ?Recorded hydrocodone 5 mg-acetaminophen 325 1 tab PO Q6H PRN pa in #7 tabs 11/06/24 mg tablet methylprednisolone 4 mg tablets in 4 mg PO QID #21 ea 11/06/24 a dose pack (Medrol (Abhi)) Allergies Allergy/AdvReac Type Severity Reaction Status Date / Time aspirin Allergy Severe vomiting Verified 11/06/24 15:22 blood calcium carbonate (From DHEA) Allergy Severe Rash Verified 11/06/24 15:22 calcium phosphate,dibasic Allergy Severe Rash Verified 11/06/24 15:22 (From DHEA) dichloralphenazone (From Allergy Severe Rash Verified 11/06/24 15:22 Midrin) isometheptene (From Midrin) Allergy Severe Rash Verified 11/06/24 15:22 prasterone (DHEA) (From DHEA) Allergy Severe Rash Verified 11/06/24 15:22 Opioid HPI Opioid Management Most Recent Opioid Data: Last Pain Scale 6 06/27/24, 14:00 Last Pain Intensity 2 06/27/24, 11:40 Last MAR Pain Assessment Today, 15:25 Last ORT Total Score 5 06/25/24, 23:35 Last ORT Risk Category Moderate Risk 06/25/24, 23:35 Review of Systems ROS Status of ROS 10 or more systems reviewed and unremark able except as noted in history and below PFSH PFS Medical History (Updated 11/06/24 @ 16:25 by Katiana Pham NP) CKD stage 3b, GFR 30-44 ml/min ?N18.32 - Chronic kidney disease, stage 3b (ICD-10) Femur fracture ?S72.90XA - Unspecified fracture of unspecified femur, initial encounter for closed fracture (ICD-10) Hernia ?K46.9 - Unspecified abdominal hernia without obstruction or gangrene (ICD- 10) Hypertension ?I10 - Essential (primary) hypertension (ICD-10) Pneumothorax ?J93.9 - Pneumothorax, unspecified (ICD-10) COPD (chronic obstructive pulmonary disease) ?J44.9 - Chronic obstructive pulmonary disease, unspecified (ICD-10) Surgical History (Updated 06/26/24 @ 11:42 by Shaikh Mayuri MD) H/O inguinal hernia repair ?Z98.890 - Other specified postprocedural states (ICD-10) ?Z87.19 - Personal history of other diseases of the digestive system (ICD-10) H/O total knee replacement ?Z96.659 - Presence of unspecified artificial knee joint (ICD-10) H/O removal of testicle ?Z90.79 - Acquired absence of other genital organ(s) (ICD-10) Social History (Updated 06/26/24 @ 11:42 by Shaikh Mayuri MD) Within the past year, how often did you have a drink containing alcohol: 4 or more times a week Within the past year, how many standard drinks containing alcohol did you have on a typical day: 3 or 4 Within the past year, how often did you have six or more drinks on one occasion: monthly Total score: 4 Score interpretation: A score of 4 or more indicates drinking is likely to affect patient's safety. Smoking status: Current every day smoker Non-prescribed substance use: former substance user Highest level of school completed/degree received: high school graduate Little interest or pleasure in doing things: not at all Feeling down, depressed, or hopeless: not at all Exam Narrative Exam Narrative: Constituational: Awake/ alert, no apparent distress, thin, appears older than stated age HENMT: normocephalic, external ears normal, moist oral mucous membranes and oropharynx normal Eyes: EOMI and conjunctivae normal Neck: ROM intact Chest: inspection of chest normal Respiratory: Normal respiratory effort, clear to auscultation bilaterally Cardio: regular rate and regular rhythm GI: soft to palpation and non-tender Back: nontender MSK: + Moderate pain to the posterior aspect of L shoulder without surrounding edema, ecchymosis, crepitus, deformity, L upper arm/elbow stable ROM limited at L shoulder due to pain with inability to past 90 degrees or abduct, + moderate pain L wrist with surrounding erythema, edema, no ecchymosis, crepitus, deformity, L hand/forearm stable, ROM limited at L wrist due to pain, gross/fine motor movement intact to all digits of L hand, +NVI Skin: no rashes or petechiae Neuro: no focal deficits Psych: mental status grossly normal Constitutional Vital Signs, click to edit/add: Last Vital Signs Temp 98.2 F 11/06/24 15:09 Pulse 79 11/06/24 15:09 Resp 20 11/06/24 15:09 BP 159/91 H 11/06/24 15:09 Pulse Ox 97 11/06/24 15:09 Course Vital Signs Vital signs: Vital Signs Temperature 98.2 F 11/06/24 15:09 Pulse Rate 79 11/06/24 15:09 Respiratory Rate 20 11/06/24 15:09 Blood Pressure 159/91 H 11/06/24 15:09 Pulse Oximetry 97 11/06/24 15:09 Temperature 98.2 F 11/06/24 15:09 Pulse Rate 79 11/06/24 15:09 Respiratory Rate 20 11/06/24 15:09 Blood Pressure 159/91 H 11/06/24 15:09 Pulse Oximetry 97 11/06/24 15:09 Medical Decision Making [facility] Narrative Medical decision making narrative: The patient is a nontoxic-appearing 69-year-old male who presented to the emergency department today for evaluation concerns for nontraumatic left shoulder and subsequent left wrist pain. Initial examination without any concerning neurovascular or motor findings on exam with exception of pain is limiting range of motion at the left wrist and shoulder otherwise. No obvious evidence concerning for infectious processes such as cellulitis or joint. Patient did receive supportive measures of [place] and on reevaluation he reported some improvement in pain. X-ray imaging of the left shoulder and wrist without critical findings. Labs showed mild leukocytosis with WBCs 15 otherwise no significant anemia or thrombocytopenia. Electrolytes including renal and hepatic function stable. Normal ESR, mildly elevated CRP of 0.72. Normal uric acid. Clinical impression arthralgia. Discussed these findings with the patient including recommendations for supportive care. Will discharge home with Medrol Dosepak and [place]. Advised on follow-up with patient's primary care provider in addition to orthopedics for reevaluation. Discussed signs and symptoms of any worsening condition and when to consider reevaluation. Patient verbalized an understanding of this and is agreeable with the plan to be discharged home. Medical Records Medical records reviewed: Yes I reviewed the patient's medical records Lab Data Lab results reviewed: Yes I reviewed the patient's lab results Labs: Lab Results 11/06/24 Range/Units 15:32 WBC 15.2 H (4.0-11.0) 10^3/uL RBC 4.88 (4.70-6.10) 10^6/uL Hgb 17.4 (14.0-18.0) g/dL Hct 48.1 (42.0-54.0) % MCV 98.6 H (80.0-94.0) fL MCH 35.7 H (25.9-34.0) pg MCHC 36.2 H (29.9-35.2) g/dL RDW 13.0 (11.0-15.0) % Plt Count 343 (150-450) 10^3/uL MPV 9.5 (9.5-13.5) fL Neut % (Auto) 84.9 H (43.0-75.0) % Lymph % (Auto) 6.6 L (20.5-60.0) % [place] % (Auto) 7.8 (1.7-12.0) % Eos % (Auto) 0.2 L (0.9-7.0) % Baso % (Auto) 0.2 (0.2-2.0) % Neut # (Auto) 12.9 H (1.4-6.5) 10^3/uL Lymph # (Auto) 1.0 L (1.2-3.8) 10^3/uL [place] # (Auto) 1.2 H (0.3-0.8) 10^3/uL Eos # (Auto) 0.0 (0.0-0.7) 10^3/uL Baso # (Auto) 0.0 (0.0-0.1) 10^3/uL Abs Immat Gran (auto) 0.05 H (0.00-0.03) 10^3/uL Imm/Tot Granulo (auto) 0.3 (0.0-0.5) % ESR 11 (<=20) mm/hr Sodium 140 (136-145) mmol/L Potassium 3.3 L (3.5-5.1) mmol/L Chloride 102 (98-107) mmol/L Carbon Dioxide 29.3 (21.0-32.0) mmol/L Anion Gap 12.0 BUN 9.0 (7.0-18.0) mg/dL Creatinine 1.18 (0.70-1.30) mg/dL Est GFR ( Amer) >60 (>=60 mL/min/1.73m^2) Est GFR (Non-Af Amer) >60 (>=60 mL/min/1.73m^2) BUN/Creatinine Ratio 7.6 Glucose 122 H (74-106) mg/dL Uric Acid 4.0 (3.5-7.2) mg/dL Calcium 9.3 (8.5-10.1) mg/dL Total Bilirubin 0.7 (0.2-1.0) mg/dL AST 16 (15-37) U/L ALT 16 (16-63) U/L Alkaline Phosphatase 97 (46-116) U/L C-Reactive Protein 0.72 H (<=0.50) mg/dL Total Protein 7.5 (6.4-8.2) g/dL Albumin 3.6 (3.4-5.0) g/dL Globulin 3.9 g/dL Albumin/Globulin Ratio 0.9 Imaging Data Left shoulder XR: Attestation: I have reviewed the pertinent imaging results. Radiologist's impression: No acute process at left shoulder joint. Intact left glenohumeral joint with mild hypertrophic changes at the left AC joint. Preserved subacromial space. Left wrist XR: Attestation: I have reviewed the pertinent imaging results. Radiologist's impression: Nonspecific soft tissue swelling along the volar and dorsal aspect of the left wrist. No acute left wrist fracture or dislocation. No erosion or periotitis. Discharge Plan Discharge Chief Complaint: Extremity Problem, Nontraumatic Clinical Impression: Arthralgia Patient Disposition: Home, Self-Care Prescriptions / Home Meds: New methylprednisolone [Medrol (Abhi)] 4 mg tablets,dose pack 4 mg PO QID Qty: 21 0RF hydrocodone-acetaminophen 5-325 mg tablet 1 tab PO Q6H PRN (Reason: pain) Qty: 7 0RF Print Language: Jordanian Instructions: Arthralgia (ED) Additional Instructions: May take Tylenol as needed for any pain. May take [place] as needed for severe pain. Take Medrol Dosepak as prescribed. Wear sling and Ji wrap for comfort. Please follow-up with your primary care provider for reevaluation as discussed. Referrals: Ivan Segal MD [Primary Care Provider, Family Practice] - 1 week Mau Flores MD [Physician] - 1 week
[2024-11-06 15:55] LABS: Alanine Aminotransferase 16 U/L (16-63); Albumin Globulin Ratio 0.9; Albumin Level 3.6 g/dL (3.4-5.0); Alkaline Phosphatase 97 U/L (46-116); Aspartate Amino Transferase 16 U/L (15-37); BUN Creatinine Ratio 7.6; Bilirubin Total 0.7 mg/dL (0.2-1.0); C Reactive Protein 0.72 mg/dL (<=0.50); Calcium 9.3 mg/dL (8.5-10.1); Carbon Dioxide 29.3 mmol/L (21.0-32.0); Chloride 102 mmol/L (98-107); Estimated GFR (African America >60 (>=60 mL/min/1.73m^2); Estimated GFR (Non-African Ame >60 (>=60 mL/min/1.73m^2); Globulin 3.9 g/dL; Glucose 122 mg/dL (74-106); Potassium 3.3 mmol/L (3.5-5.1); Sodium 140 mmol/L (136-145); Total Protein 7.5 g/dL (6.4-8.2)
[2024-11-06 15:58] LABS: Erythrocyte Sedimentation Rate 11 mm/hr (<=20)
== END 2024-11-06 17:34 | disposition home or self-care (01) ==
PROVIDERS: Nurse Practitioner; Emergency Provider Emergency Medicine; PCP Family Medicine
DX: M25.512 Pain in left shoulder (principal); M25.532 Pain in left wrist; M19.90 Unspecified osteoarthritis, unspecified site; Z96.659 Presence of unspecified artificial knee joint; F17.200 Nicotine dependence, unspecified, uncomplicated
CPT/HCPCS: 36415; 73030; 73110; 80053; 84550; 85025; 85652; 86140; 99285